=== PATIENT | male | born 1995 | race African-American/Black ===

== ENCOUNTER 2019-09-24 08:46 | Emergency (ER) | payer MEDICAID ==
[~2019-09-24] VITALS: Ht 177.8 cm; Wt 75.0 kg
[2019-09-24 08:51] VITALS: BP 128/74
== END 2019-09-24 11:37 | disposition left against medical advice (07) ==
LOC: ER 09:09
DX: R51 Headache (principal); Z53.21 Procedure and treatment not carried out due to patient leaving prior to being seen by health care provider